=== PATIENT | female | born 1995 | race Caucasian/White ===

== ENCOUNTER 2017-03-28 22:53 | Emergency (ER) | payer OTHER ==
[~2017-03-28] VITALS: Ht 154.9 cm; Wt 55.0 kg
[~2017-03-28 22:53] MED LIST: NAPR500T PO
[2017-03-28 22:57] VITALS: BP 111/73; PULSE 79; RESP 18; O2SAT 98
--- NOTE | 2017-03-28 23:36 | ED.REPORT ---
HPI-Headache Date of Service Mar 28, 2017 ED Provider: Madan Daniel MD The pt is a 6-7 week 21 y/o female with a history of migraines who presents to the ED complaining of a severe headache that began this evening. She usually drinks 2-3 cups of coffee a day but she stopped drinking coffee when she found out that she is . She has not consumed any caffiene today. Patient also quit smoking cigarettes. Patient reports associated photophobia, sound sensitivity, nausea, and vomiting. She has been taking Advil Migraine but vomited up most of it. Patient also reports abdominal cramping, which she believes is associated with vomiting. She has been drinking plenty of water. Patient has an ultrasound scheduled for next week to confirm her dates. Nursing Notes Stated Complaint: SEVERE MIGRAINE Chief Complaint: Headache Nursing Notes Reviewed: Yes Allergies: Coded Allergies: No Known Allergies (Unverified , 03/28/17) Scheduled PRN Naproxen (Naprosyn) 500 Mg Tablet 500 MG PO BID PRN PRN For Pain General Time Seen by MD: 23:34 Chief Complaint Migraine headache Hx Obtained From: Patient Arrived By: Walk-in Sudden in Onset?: Yes Onset Occurred: 1 - 4 hours ago Symptom Duration: Since onset Location: : Generalized Quality: Painful Severity: Current: Severe Severity: Maximum: Severe Recent Healthcare: No recent doctor visit, No recent hospitalization Similar Sx Previous: Yes Past Medical History Past Medical History carpal tunnel Reports: Asthma Reports: Migraines Past Surgical History denies Smoking History Former Smoker Social History Alcohol Use: Denies alcohol use Drug Use: Denies drug use Other Social History: Good social support, Local resident Ambulatory Status Independent Review of Systems Review of Systems Note: + sound sensitivity Constitutional: Denies: Fever Eyes: Reports: Photophobia GI: Reports: Abdominal pain (Cramping), Nausea, Vomiting Neurologic: Reports: Headache Complete sys rev & neg: except as marked. Physical Exam Initial Vital Signs Vital Signs (First) Date Time Temp Pulse Resp B/P Pulse Ox O2 Delivery O2 Flow Rate FiO2 03/28/17 22:57 36.4 79 18 111/73 98 Room Air Initial VS: Reviewed, Vital signs normal Extremities: Vascular intact, Neuro intact, No swelling, No tenderness Skin: Warm, Dry, No cyanosis Psychiatric: Mood/affect normal, Behavior normal, Normal thought content General/Constitutional: Awake, Alert Appears uncomfortable Head / Eyes: Atraumatic, Normocephalic, PERRL Very photobic Neck: Atraumatic, Supple, Full range of motion Neurologic: Oriented X3, Speech NL, No motor deficits, No sensory deficits, CN II - XII intact ENT: Airway patent Mouth: Positive: Mucous membranes dry (Lips) Respiratory / Chest: Atraumatic, Breath sounds NL, Breath sounds = bilat, No respiratory distress, No rales, No rhonchi, No wheezing Cardiovascular: Heart rate NL, Regular rhythm, Heart sounds NL, No murmurs Abdomen: Soft, Non-tender Re-Eval/Medical Decision Med Decision/Clinical Course 21-year-old female who just found out she is . She stopped smoking and drinking caffeine 2 days ago. She now has a severe headache. Neuro exam is normal and there are no bothersome features of her headache. She was given ondansetron and Tylenol, followed by a cup of coffee. She had complete relief of her headache. Also concerning is that she has had some lower abdominal cramping. She has had no dysuria or frequency. Urinalysis is normal. Her abdomen is soft and nontender and she has no discharge This raises concern for threatened miscarriage. She was encouraged to push fluids. Return if she has further symptoms. Source of Hx: Old records Re-Evaluation/Progress #1: Time of Eval: 00:42 Re-Evaluation/Progress Note: Pt rechecked. Pt was much improved but still having cramping. Re-Evaluation/Progress #2: Time of Eval: 01:25 Re-Evaluation/Progress Note: Pt rechecked. Informed pt of plan for treatment. Pt understands and agrees with plan for treatment. F/U instructions and RTER warnings given. All questions addressed. Counseled Regarding: Diagnosis, Lab results, Need for follow-up, When/why to return to ED Discharge & Departure Impression: Primary Impression: Caffeine withdrawal Additional Impressions: Headache Headache type: unspecified Headache chronicity pattern: acute headache Intractability: not intractable Qualified Code: R51 - Headache Cramping complicating , antepartum Disposition: Home Discharge Condition All VS Reviewed: Yes Condition: Improved Patient Instructions: Threatened Miscarriage (ED) Additional Instructions: Your headache is likely due to withdrawal from caffeine. It is okay to use one or 2 if needed beverages daily while . Make sure that you drink plenty of fluids. The cramping may be from dehydration. However, it can also be the first sign of a miscarriage. You do not have a urinary tract infection. Return to the emergency room or see your primary doctor if you have continued cramping. Referrals: Guillermina Stuart DO (PCP) Scribe Attestation Portions of this note were transcribed by Dickson Rosado and Jaymie Bear. I, Dr. Daniel personally performed the history, physical exam and medical decision- making; I reviewed and confirmed the accuracy of the information in the transcribed note. Signed by: Dickson Rosado and Jaymie Bear, [employer], 03/28/17 and 0220. copies to: Guillermina Stuart Howard L MD Mar 28, 2017 23:36 Dickson Rosado Mar 29, 2017 00:42 Jaymie Bear Mar 29, 2017 02:17
[2017-03-28] MEDS ORDERED: Ondansetron 8 mg ODT Tablet PO ONE (23:50)
== END 2017-03-29 01:28 | disposition home or self-care (01) ==
LOC: SED 22:53
DX: O26.891 Other specified pregnancy related conditions, first trimester (principal); F15.93 Other stimulant use, unspecified with withdrawal; R51 Headache; R10.30 Lower abdominal pain, unspecified; J45.909 Unspecified asthma, uncomplicated; Z3A.01 Less than 8 weeks gestation of pregnancy; Z87.891 Personal history of nicotine dependence